=== PATIENT | male | born 1955 | race Two or more races ===

== ENCOUNTER 2020-07-08 10:02 | Emergency (ER) | payer OTHER, MEDICAID ==
[~2020-07-08] VITALS: Ht 165.1 cm; Wt 98.0 kg
[2020-07-08 13:34] VITALS: BP 141/86
== END 2020-07-08 13:38 | disposition home or self-care (01) ==
LOC: EDUNIT# 10:02 → ER 10:02
DX: U07.1 COVID-19 (principal); J12.89 Other viral pneumonia; I10 Essential (primary) hypertension
CPT/HCPCS: 71045

== ENCOUNTER → 2020-07-08 10:02 | Emergency (ER) | payer MEDICARE | END | disposition left against medical advice (07) | LOC: ER 10:02 | DX: R05 Cough (principal); R07.89 Other chest pain; Z53.21 Procedure and treatment not carried out due to patient leaving prior to being seen by health care provider ==

== ENCOUNTER 2022-05-10 05:11 | Emergency (ER) | payer MEDICARE, OTHER ==
[~2022-05-10] VITALS: Ht 165.1 cm; Wt 100.0 kg
[2022-05-10] MEDS ORDERED: cefTRIAXone SOD 1,000 MG VL IM ONE (07:00)
[2022-05-10] MEDS ORDERED: CEPH-510 PO (07:18)
[2022-05-10 07:27] VITALS: BP 131/88
== END 2022-05-10 08:04 | disposition home or self-care (01) ==
LOC: ER 05:11
DX: L03.211 Cellulitis of face (principal)
CPT/HCPCS: 96372; 99283; J0696

== ENCOUNTER 2024-04-12 15:50 | Emergency (ER) | payer OTHER ==
[~2024-04-12] VITALS: Ht 165.1 cm; Wt 102.8 kg
[~2024-04-12 15:50] MED LIST: CEPH-510 PO
[2024-04-12 19:10] LABS: Basophils # (auto) 0 10 ^3/uL (0-0.2); Basophils % (auto) 0.4 % (0.0-2.0); Eosinophils # (auto) 0.1 10 ^3/uL (0-0.8); Eosinophils % (auto) 0.9 % (0.0-7.0); Hematocrit 43.2 % (41.0-53.0); Hemoglobin 15.3 g/dL (13.5-17.5); Lymphocytes # (auto) 1.8 10 ^3/uL (0.4-5.4); Lymphocytes % (auto) 17.9 % (10.0-50.0); Mean Corpuscular Hemoglobin 31.4 pg (28.0-32.0); Mean Corpuscular Hgb Conc. 35.5 g/dL (32.0-36.0); Mean Corpuscular Volume 88.4 fL (80.0-100.0); Monocytes # (auto) 0.8 10 ^3/uL (0-1.3); Monocytes % (auto) 8.3 % (0.0-12.0); Neutrophils # (auto) 7.4 10 ^3/uL (1.6-8.6); Neutrophils % (auto) 72.5 % (37.0-80.0); Nucleated Red Blood Cells % 0.1 %; Platelet Count (auto) 211 10^3/uL (140-450); Red Blood Cells 4.89 10^6/uL (4.5-5.90); Red Cell Distribution Width 13.5 % (11.8-14.3); White Blood Cell 10.2 10^3/uL (4.4-10.8)
[2024-04-12 19:40] LABS: Chloride 107 mmol/L (98-107); Potassium 4.3 mmol/L (3.5-5.1); Sodium 139 mmol/L (136-145)
[2024-04-12 19:41] LABS: Anion Gap 7 (5-15); Carbon Dioxide 25 mmol/L (20-30)
[2024-04-12 19:42] LABS: Calcium 9.6 mg/dL (8.7-10.4)
[2024-04-12 19:46] LABS: Blood Urea Nitrogen 24 mg/dL (9-23); Glucose 108 mg/dL (74-106)
[2024-04-12] MEDS ORDERED: NAP500T PO (20:54)
[2024-04-12 22:41] VITALS: BP 141/83; PULSE 72; RESP 18; TEMP 98.6; O2SAT 97
== END 2024-04-12 22:43 | disposition home or self-care (01) ==
LOC: ER 15:50
DX: M25.561 Pain in right knee (principal); R22.41 Localized swelling, mass and lump, right lower limb; Z79.899 Other long term (current) drug therapy
CPT/HCPCS: 36415; 73562; 80048; 83880; 85025; 93971